=== PATIENT | male | born 1950 | race Caucasian/White ===

== ENCOUNTER → 2023-12-02 | Outpatient (REF) | payer MEDICARE ==
[~2023-12-02] MED LIST: B COMPLEX1 EACH PO; BRILINTA90 MG PO; CENTRUM ADULTS1 EACH PO; FLOMAX0.4 MG PO; GLIMEPIRIDE4 MG PO; IOPAMIDOL 370 MG/ML 100 ML INFUS..BTL INJ ONE; JANUMET 50-1,01 EACH PO; LIDOCAINE HCL 1% LOCAL INJ 20 ML VIAL ONE; LIPITOR20 MG PO; METOPROLOL TART25 MG PO; OCUVITE TABLET1 EAC1 PO; PRIMIDONE125 MG PO; RYBELSUS3 MG PO; SODIUM CHLORIDE 0.9% 500ML 500 ML ONE; TOPIRAMATE100 MG PO; TRICOR145 MG PO; VASCEPA1 GM PO; VITAMIN C1000 MG PO
== END ==
LOC: DX 08:52
PROVIDERS: ATTEND Urology
DX: Z43.6 Encounter for attention to other artificial openings of urinary tract (principal); T19.9XXD Foreign body in genitourinary tract, part unspecified, subsequent encounter; N13.30 Unspecified hydronephrosis
CPT/HCPCS: 50435; J2001; J7040; Q9967